=== PATIENT | female | born 1990 | race Two or more races ===

== ENCOUNTER 2022-11-05 12:30 | Observation (INO) | payer MEDICAID | END 2022-11-05 17:38 | disposition home or self-care (01) | LOC: UNDOADMOB 12:30 → LDRP 12:30 | PROVIDERS: ADMIT Obstetrics & Gynecology; ATTEND Obstetrics & Gynecology | DX: O26.893 Other specified pregnancy related conditions, third trimester (principal); R10.30 Lower abdominal pain, unspecified; Z3A.28 28 weeks gestation of pregnancy; Z98.891 History of uterine scar from previous surgery | CPT/HCPCS: 59025; 76805; 76817; 81002; 94760; G0378 ==

== ENCOUNTER 2022-12-08 11:25 | Observation (INO) | payer MEDICAID ==
[~2022-12-08] VITALS: Ht 165.1 cm; Wt 90.7 kg
[2022-12-08 12:22] LABS: Basophils # (auto) 0 10 ^3/uL (0-0.2); Basophils % (auto) 0.2 % (0.0-2.0); Eosinophils # (auto) 0.1 10 ^3/uL (0-0.8); Eosinophils % (auto) 1.3 % (0.0-7.0); Hematocrit 35.1 % (36.0-46.0); Hemoglobin 11.7 g/dL (12.2-16.2); Lymphocytes # (auto) 2.2 10 ^3/uL (0.4-5.4); Lymphocytes % (auto) 23.8 % (10.0-50.0); Mean Corpuscular Hemoglobin 28.8 pg (28.0-32.0); Mean Corpuscular Hgb Conc. 33.3 g/dL (32.0-36.0); Mean Corpuscular Volume 86.4 fL (80.0-100.0); Monocytes # (auto) 0.5 10 ^3/uL (0-1.3); Neutrophils # (auto) 6.2 10 ^3/uL (1.6-8.6); Neutrophils % (auto) 68.7 % (37.0-80.0); Nucleated Red Blood Cells % 0.1 %; Red Blood Cells 4.07 10^6/uL (4.0-5.20); Red Cell Distribution Width 14.6 % (11.8-14.3); White Blood Cell 9.1 10^3/uL (4.4-10.8)
[2022-12-08 12:27] LABS: Urine Bacteria NONE SEEN /hpf (None Seen); Urine Blood Negative /uL (Negative); Urine Clarity HAZY (Clear); Urine Color Colorless (Yellow); Urine Protein, UAD TRACE (Negative); Urine Specific Gravity 1.011 (1.001-1.035); Urine Urobilinogen Normal (Negative); Urine WBC 5 /hpf (0 - 5)
[2022-12-08 12:32] LABS: Protein, Urine 15.2 mg/dL (0.0-11.9)
[2022-12-08 12:34] LABS: Albumin 3.8 g/dL (3.2-4.8); Alkaline Phosphatase 113 U/L (46-116); Anion Gap 8 (5-15); Aspartate Aminotransferase 14 U/L (13-40); Bilirubin, Total 0.4 mg/dL (0.2-1.0); Calcium 8.3 mg/dL (8.7-10.4); Carbon Dioxide 25 mmol/L (20-30); Chloride 105 mmol/L (98-107); Glucose 94 mg/dL (74-106); Potassium 3.3 mmol/L (3.5-5.1); Sodium 138 mmol/L (136-145); Total Protein 6.2 g/dL (5.7-8.2); Uric Acid 3.4 mg/dL (3.1-7.8)
[2022-12-08 12:35] LABS: Creatinine, Urine 58.2 mg/dL (30.0-125.0); Urine Protein/Creatinine Ratio 0.26
[2022-12-08 12:38] LABS: Alanine Aminotransferase < 9 U/L (7-40); Blood Urea Nitrogen < 5 mg/dL (9-23)
[2022-12-08 12:44] LABS: INR 0.94 (0.9-1.15); Prothrombin Time 9.9 sec (9.3-11.8)
[2022-12-08] MEDS ORDERED: POTASSIUM CHL 20 Meq TABLET PO STA (13:06)
== END 2022-12-08 13:38 | disposition home or self-care (01) ==
LOC: LDRP 11:25 → UNDOADMOB 11:25 → LDRP 11:39 → UNDODISOB 13:38
PROVIDERS: ADMIT Obstetrics & Gynecology; ATTEND Obstetrics & Gynecology
DX: O13.3 Gestational [pregnancy-induced] hypertension without significant proteinuria, third trimester (principal); Z3A.32 32 weeks gestation of pregnancy
CPT/HCPCS: 36415; 59025; 76818; 80053; 81001; 81002; 82570; 84156; 84550; 85025; 85379; 85384; 85610; 85730; 94760; G0378

== ENCOUNTER 2022-12-16 10:20 | Observation (INO) | payer MEDICAID ==
[2022-12-16 10:56] LABS: Protein, Urine 10.7 mg/dL (0.0-11.9)
[2022-12-16 10:56] LABS: Protein, Urine 9.2 mg/dL (0.0-11.9)
[2022-12-16 10:59] LABS: Creatinine, Urine 44.34 mg/dL (30.0-125.0); Urine Protein/Creatinine Ratio 0.24
[2022-12-16] MEDS ORDERED: PREN-96 PO (12:14)
== END 2022-12-16 12:23 | disposition home or self-care (01) ==
LOC: LDRP 10:20 → UNDOADMOB 10:20 → LDRP 10:23
PROVIDERS: ADMIT Obstetrics & Gynecology; ATTEND Obstetrics & Gynecology
DX: O13.3 Gestational [pregnancy-induced] hypertension without significant proteinuria, third trimester (principal); Z3A.34 34 weeks gestation of pregnancy
CPT/HCPCS: 59025; 76818; 81002; 82570; 84156; 94760; G0378

== ENCOUNTER 2023-01-09 10:56 | Observation (INO) | payer MEDICAID ==
[~2023-01-09 10:56] MED LIST: PREN-96 PO
== END 2023-01-09 12:19 | disposition home or self-care (01) ==
LOC: LDRP 10:56
PROVIDERS: ADMIT Obstetrics & Gynecology; ATTEND Obstetrics & Gynecology
DX: O41.03X0 Oligohydramnios, third trimester, not applicable or unspecified (principal); O24.419 Gestational diabetes mellitus in pregnancy, unspecified control; O26.893 Other specified pregnancy related conditions, third trimester; R51.9 Headache, unspecified; Z3A.37 37 weeks gestation of pregnancy
CPT/HCPCS: 59025; 76818; 81002; G0378

== ENCOUNTER 2023-01-11 09:06 | Inpatient (IN) | payer MEDICAID ==
[~2023-01-11] VITALS: Ht 170.2 cm; Wt 104.3 kg
[2023-01-11 11:32] LABS: Basophils # (auto) 0 10 ^3/uL (0-0.2); Basophils % (auto) 0.2 % (0.0-2.0); Eosinophils # (auto) 0 10 ^3/uL (0-0.8); Eosinophils % (auto) 0.6 % (0.0-7.0); Hematocrit 36.2 % (36.0-46.0); Hemoglobin 12.3 g/dL (12.2-16.2); Lymphocytes # (auto) 2.2 10 ^3/uL (0.4-5.4); Lymphocytes % (auto) 24.8 % (10.0-50.0); Mean Corpuscular Hemoglobin 28.7 pg (28.0-32.0); Mean Corpuscular Hgb Conc. 34.1 g/dL (32.0-36.0); Monocytes # (auto) 0.7 10 ^3/uL (0-1.3); Monocytes % (auto) 7.5 % (0.0-12.0); Neutrophils # (auto) 5.9 10 ^3/uL (1.6-8.6); Neutrophils % (auto) 66.9 % (37.0-80.0); Nucleated Red Blood Cells % 0.1 %; Red Cell Distribution Width 15.2 % (11.8-14.3); White Blood Cell 8.8 10^3/uL (4.4-10.8)
[2023-01-11 11:53] LABS: Amphetamine Screen, Urine Neg (NEGATIVE); Urine Bacteria NONE SEEN /hpf (None Seen); Urine Blood Negative /uL (Negative); Urine Clarity Clear (Clear); Urine Color Colorless (Yellow); Urine Hyaline Cast FEW /lpf (0 - 2); Urine Protein, UAD Negative (Negative); Urine Specific Gravity 1.005 (1.001-1.035); Urine Urobilinogen Normal (Negative); Urine WBC 2 /hpf (0 - 5)
[2023-01-11 11:53] LABS: Albumin 3.8 g/dL (3.2-4.8); Alkaline Phosphatase 167 U/L (46-116); Anion Gap 7 (5-15); Aspartate Aminotransferase 13 U/L (13-40); Bilirubin, Total 0.4 mg/dL (0.2-1.0); Calcium 8.9 mg/dL (8.5-10.1); Carbon Dioxide 24 mmol/L (20-30); Chloride 107 mmol/L (98-107); Glucose 81 mg/dL (74-106); Potassium 3.4 mmol/L (3.5-5.1); Sodium 138 mmol/L (136-145); Total Protein 6.1 g/dL (5.7-8.2)
[2023-01-11 11:55] LABS: Barbiturate Scree,Urine Neg (NEGATIVE); Benzodiazephine Screen, Urine Neg (NEGATIVE); Cocaine Screen, Urine Neg (NEGATIVE); Opiate Scree,Urine Neg (NEGATIVE)
[2023-01-11 11:55] LABS: Alanine Aminotransferase < 9 U/L (7-40); BUN/Creatinine Ratio 11.1 (10.0-20.0); Blood Urea Nitrogen < 5 mg/dL (9-23)
[2023-01-11 11:56] LABS: Cannabinoid Screen, Urine Neg (NEGATIVE); Phencyclidine Screen, Urine Neg (NEGATIVE)
[2023-01-11 12:07] LABS: INR 0.94 (0.9-1.15); Partial Thromboplastin Time 27.6 SEC (24.5-34.5); Prothrombin Time 9.9 sec (9.3-11.8)
[2023-01-12] VITALS (18 sets, daily range): BP systolic 121–147; BP diastolic 67–92; PULSE 88–110; RESP 13–20; TEMP 98–99.8; O2SAT 93–98
[2023-01-12] MEDS ORDERED: LACTATED RINGER'S 1,000 ML IV ONE (04:15)
[2023-01-12] MEDS: LACTATED RINGER'S 1,000 ML IV SCH ×2 (05:51→14:15)
[2023-01-12 05:54] LABS: Basophils # (auto) 0 10 ^3/uL (0-0.2); Basophils % (auto) 0.3 % (0.0-2.0); Eosinophils # (auto) 0.1 10 ^3/uL (0-0.8); Eosinophils % (auto) 0.9 % (0.0-7.0); Hematocrit 34.7 % (36.0-46.0); Hemoglobin 11.5 g/dL (12.2-16.2); Lymphocytes # (auto) 2.4 10 ^3/uL (0.4-5.4); Lymphocytes % (auto) 27.4 % (10.0-50.0); Mean Corpuscular Hemoglobin 28.1 pg (28.0-32.0); Mean Corpuscular Hgb Conc. 33.2 g/dL (32.0-36.0); Mean Corpuscular Volume 84.7 fL (80.0-100.0); Monocytes # (auto) 0.6 10 ^3/uL (0-1.3); Monocytes % (auto) 7.4 % (0.0-12.0); Neutrophils # (auto) 5.6 10 ^3/uL (1.6-8.6); Nucleated Red Blood Cells % 0.1 %; Red Cell Distribution Width 15.1 % (11.8-14.3); White Blood Cell 8.7 10^3/uL (4.4-10.8)
[2023-01-12 05:57] LABS: Albumin 3.5 g/dL (3.2-4.8); Alkaline Phosphatase 166 U/L (46-116); Anion Gap 8 (5-15); Aspartate Aminotransferase 12 U/L (13-40); Bilirubin, Total 0.5 mg/dL (0.2-1.0); Calcium 7.9 mg/dL (8.7-10.4); Carbon Dioxide 22 mmol/L (20-30); Chloride 108 mmol/L (98-107); Glucose 95 mg/dL (74-106); Potassium 3.1 mmol/L (3.5-5.1); Sodium 138 mmol/L (136-145); Total Protein 5.6 g/dL (5.7-8.2); Uric Acid 3.8 mg/dL (3.1-7.8)
[2023-01-12 06:09] LABS: INR 0.97 (0.9-1.15); Partial Thromboplastin Time 28.2 SEC (24.5-34.5); Prothrombin Time 10.2 sec (9.3-11.8)
[2023-01-12 06:35] LABS: Alanine Aminotransferase < 9 U/L (7-40); BUN/Creatinine Ratio 11.6 (10.0-20.0); Blood Urea Nitrogen < 5 mg/dL (9-23)
[2023-01-12] MEDS ORDERED: TETRACAINE 1% INJ 2 ML VIAL IJ ONE (06:59)
[2023-01-12] MEDS ORDERED: fentaNYL CITRATE 100 MCG/2 ML VL ONE (07:12)
[2023-01-12] MEDS ORDERED: MORPHINE SULF PF 5 MG/10 ML VIAL ONE (07:12)
[2023-01-12] MEDS ORDERED: MIDAZOLAM HCL 2MG/2ML 2ml VIAL (1mg/ml) ONE (07:13)
[2023-01-12] MEDS ORDERED: LACT. RINGERS/OXYTOCIN 20UNITS 1,000 ML IV ONE (07:15)
[2023-01-12] MEDS ORDERED: ONDANSETRON HCL 4 MG/2 ML VIAL IV PRN ×3 (07:15→08:15)
[2023-01-12] MEDS ORDERED: ceFAZolin 2 GM/D5W100ml 100 ML IV ONE (07:15)
[2023-01-12] MEDS ORDERED: GUM (CHEWING) 1 GUM CHEW CHEW ONE (07:15)
[2023-01-12] MEDS ORDERED: ceFAZolin 1GM/50ML 50 ML IV SCH (07:15)
[2023-01-12 07:25] LABS: Urine Bacteria NONE SEEN /hpf (None Seen); Urine Blood Negative /uL (Negative); Urine Clarity Clear (Clear); Urine Color Straw (Yellow); Urine Protein, UAD Negative (Negative); Urine Specific Gravity 1.011 (1.001-1.035); Urine Urobilinogen Normal (Negative); Urine WBC 3 /hpf (0 - 5)
[2023-01-12 07:29] LABS: Amphetamine Screen, Urine Neg (NEGATIVE); Benzodiazephine Screen, Urine Neg (NEGATIVE)
[2023-01-12 07:30] LABS: Barbiturate Scree,Urine Neg (NEGATIVE); Cannabinoid Screen, Urine Neg (NEGATIVE); Cocaine Screen, Urine Neg (NEGATIVE); Creatinine, Urine 52.87 mg/dL (30.0-125.0); Opiate Scree,Urine Neg (NEGATIVE); Phencyclidine Screen, Urine Neg (NEGATIVE)
[2023-01-12] MEDS ORDERED: CARBOPROST TROMETHAMINE 250 MCG/1ML VIAL IM ONE (07:48)
[2023-01-12] MEDS ORDERED: ONDANSETRON HCL 4 MG/2 ML VIAL ONE (07:49)
[2023-01-12 08:06] LABS: RPR Non Reactive (Non Reactive)
[2023-01-12] MEDS ORDERED: DexAMETHasone SOD PHOS 10MG/1ML VIAL INJ IV PRN (08:15)
[2023-01-12] MEDS ORDERED: MIDAZOLAM HCL 2MG/2ML 2ml VIAL (1mg/ml) IV PRN (08:15)
[2023-01-12] MEDS ORDERED: HYDROmorphone HCL 2 MG/ML VL/or syr IV PRN (08:15)
[2023-01-12] MEDS ORDERED: MORPHINE SULFATE 4 MG/ML SYR/VIAL IV PRN (08:15)
[2023-01-12] MEDS ORDERED: ePHEDrine SULFATE 50 MG/ML AMP IV PRN (08:15)
[2023-01-12] MEDS ORDERED: NALOXONE HCL 0.4 MG/ML VIAL IV PRN (08:15)
[2023-01-12] MEDS ORDERED: LABETALOL HCL 5 MG/ML 4ML SYRINGE IV PRN (08:15)
[2023-01-12 08:26] LABS: Protein, Urine 15.2 mg/dL (0.0-11.9); Urine Protein/Creatinine Ratio 0.29
[2023-01-12] MEDS ORDERED: HYDROmorphone HCL 2 MG/ML VL/or syr ONE (08:27)
[2023-01-12] MEDS: HYDROmorphone HCL 2 MG/ML VL/or syr IV PRN ×3 (08:31→08:58)
[2023-01-12] MEDS ORDERED: CEPH500C PO (09:51)
[2023-01-12] MEDS ORDERED: HYDR-4902 PO (09:51)
[2023-01-12] MEDS ORDERED: DOCU-94 PO (09:51)
[2023-01-12] MEDS: ACETAMINOPHEN IV 1000 MG/100ML (10MG/ML) IV PRN (14:13)
[2023-01-12] MEDS: ceFAZolin 1GM/50ML 50 ML IV SCH ×2 (14:59→23:57)
[2023-01-12] MEDS: KETOROLAC TROMETH 30 MG/ML 1ML VIAL IV PRN (19:18)
[2023-01-12] MEDS ORDERED: IBUP-1456 PO (19:18)
[2023-01-12 22:23] LABS: Basophils # (auto) 0 10 ^3/uL (0-0.2); Basophils % (auto) 0.2 % (0.0-2.0); Eosinophils # (auto) 0 10 ^3/uL (0-0.8); Eosinophils % (auto) 0.1 % (0.0-7.0); Hematocrit 33.6 % (36.0-46.0); Lymphocytes % (auto) 8.9 % (10.0-50.0); Mean Corpuscular Hemoglobin 27.8 pg (28.0-32.0); Mean Corpuscular Hgb Conc. 32.7 g/dL (32.0-36.0); Monocytes # (auto) 0.4 10 ^3/uL (0-1.3); Monocytes % (auto) 3.1 % (0.0-12.0); Neutrophils # (auto) 10.2 10 ^3/uL (1.6-8.6); Neutrophils % (auto) 87.7 % (37.0-80.0); Red Blood Cells 3.95 10^6/uL (4.0-5.20); Red Cell Distribution Width 15.2 % (11.8-14.3); White Blood Cell 11.6 10^3/uL (4.4-10.8)
[2023-01-13] VITALS (12 sets, daily range): BP systolic 124–141; BP diastolic 58–89; PULSE 88–109; RESP 16–18; TEMP 97.7–98.8; O2SAT 93–99
[2023-01-13] MEDS: LACTATED RINGER'S 1,000 ML IV SCH (00:01)
[2023-01-13] MEDS: ACETAMINOPHEN IV 1000 MG/100ML (10MG/ML) IV PRN (00:37)
[2023-01-13] MEDS: KETOROLAC TROMETH 30 MG/ML 1ML VIAL IV PRN (01:33)
[2023-01-13] MEDS ORDERED: POTASSIUM CHL 20 Meq TABLET PO ONE (05:15)
[2023-01-13 06:56] LABS: Basophils # (auto) 0 10 ^3/uL (0-0.2); Basophils % (auto) 0.4 % (0.0-2.0); Eosinophils # (auto) 0 10 ^3/uL (0-0.8); Eosinophils % (auto) 0.1 % (0.0-7.0); Hematocrit 33.6 % (36.0-46.0); Hemoglobin 11.1 g/dL (12.2-16.2); Lymphocytes # (auto) 1.1 10 ^3/uL (0.4-5.4); Lymphocytes % (auto) 11.3 % (10.0-50.0); Mean Corpuscular Hemoglobin 28.2 pg (28.0-32.0); Mean Corpuscular Volume 85.5 fL (80.0-100.0); Monocytes # (auto) 0.5 10 ^3/uL (0-1.3); Monocytes % (auto) 4.6 % (0.0-12.0); Neutrophils # (auto) 8.5 10 ^3/uL (1.6-8.6); Neutrophils % (auto) 83.6 % (37.0-80.0); Red Blood Cells 3.94 10^6/uL (4.0-5.20); Red Cell Distribution Width 15.3 % (11.8-14.3); White Blood Cell 10.1 10^3/uL (4.4-10.8)
[2023-01-13] MEDS ORDERED: BISACODYL 10 MG RECT SUPP PR PRN (07:00)
[2023-01-13] MEDS: ceFAZolin 1GM/50ML 50 ML IV SCH ×3 (07:00→07:20)
[2023-01-13] MEDS ORDERED: HYDROcodone-ACET 5/325MG TAB PO PRN (07:00)
[2023-01-13] MEDS: HYDROcodone-ACET 5/325MG TAB PO PRN ×4 (07:08→21:53)
[2023-01-13] MEDS: IBUPROFEN 800 MG TAB PO PRN ×2 (10:10→19:31)
[2023-01-13] MEDS: DOCUSATE SOD 100 MG CAP PO SCH ×2 (10:10→21:53)
[2023-01-13] MEDS: DOCUSATE CALCIUM 240 MG CAP PO SCH (10:10)
[2023-01-13] MEDS: CEPHALEXIN 250 MG CAP PO SCH ×3 (11:39→23:44)
[2023-01-13] MEDS: SIMETHICONE 80 MG CHEWABLE TABLET PO SCH ×3 (11:39→21:53)
[2023-01-13 18:06] LABS: Treponema pallidum Ab (FTA-Ab) Non Reactive (Non Reactive)
[2023-01-13] MEDS ORDERED: TETANUS-DIPTH-ACEL PERTUSSIS 0.5ML SYR Tdap IM ONE (21:00)
[2023-01-14] MEDS: IBUPROFEN 800 MG TAB PO PRN (02:44)
[2023-01-14 02:45] VITALS: BP 132/76; PULSE 86; RESP 16; TEMP 98.4; O2SAT 97
[2023-01-14] MEDS: SIMETHICONE 80 MG CHEWABLE TABLET PO SCH ×3 (05:34→17:54)
[2023-01-14 07:00] VITALS: BP 142/86; PULSE 79; RESP 16; TEMP 98.5; O2SAT 97
[2023-01-14] MEDS: CEPHALEXIN 250 MG CAP PO SCH ×3 (08:20→17:54)
[2023-01-14 11:00] VITALS: BP 138/75; PULSE 82; RESP 16; TEMP 98.7; O2SAT 97
[2023-01-14] MEDS: DOCUSATE CALCIUM 240 MG CAP PO SCH (11:16)
[2023-01-14] MEDS: DOCUSATE SOD 100 MG CAP PO SCH (11:16)
[2023-01-14] MEDS: HYDROcodone-ACET 5/325MG TAB PO PRN ×2 (11:17→15:39)
[2023-01-14 14:54] VITALS: BP 149/83; PULSE 95; RESP 16; TEMP 99.7; O2SAT 97
[2023-01-14 18:50] VITALS: BP 140/96; PULSE 100; RESP 17; TEMP 99.4; O2SAT 96
[2023-01-15 06:06] LABS: Rubella Antibodies, IgG <0.90 index (Immune >0.99)
== END 2023-01-14 21:55 | disposition home or self-care (01) | DRG 540 ==
LOC: EDSTATUS 10:13 → LDRP 01-12 03:58
PROVIDERS: ADMIT Obstetrics & Gynecology; ATTEND Obstetrics & Gynecology
PROC: 10D00Z1 Extraction of Products of Conception, Low, Open Approach (ICD-10-PCS; principal; 2023-01-12 07:09)
DX: O34.211 Maternal care for low transverse scar from previous cesarean delivery (principal); E87.6 Hypokalemia; O99.284 Endocrine, nutritional and metabolic diseases complicating childbirth; Z37.0 Single live birth; Z3A.38 38 weeks gestation of pregnancy
CPT/HCPCS: 36415; 59025; 80053; 80307; 81001; 81002; 82570; 84156; 84550; 85025; 85610; 85730; 86592; 86762; 86850; 86900; 86901; 87340; 90715; 94760; 94762; 96360; 96361; 96366; 96372; 96375; G0378; J0131; J0690; J1885; J2250; J2405

== ENCOUNTER → 2024-01-30 | Outpatient (CLI) | payer MEDICAID ==
[~2024-01-30] MED LIST changes: +CEPH500C PO; +DOCU-94 PO; +HYDR-4902 PO; +IBUP-1456 PO
[2024-01-30 11:05] LABS: Basophils # (auto) 0 10 ^3/uL (0-0.2); Basophils % (auto) 0.4 % (0.0-2.0); Eosinophils # (auto) 0.1 10 ^3/uL (0-0.8); Hematocrit 43.1 % (36.0-46.0); Hemoglobin 14.9 g/dL (12.2-16.2); Lymphocytes # (auto) 3.3 10 ^3/uL (0.4-5.4); Lymphocytes % (auto) 34.3 % (10.0-50.0); Mean Corpuscular Hemoglobin 29.7 pg (28.0-32.0); Mean Corpuscular Hgb Conc. 34.5 g/dL (32.0-36.0); Mean Corpuscular Volume 86.2 fL (80.0-100.0); Monocytes # (auto) 0.6 10 ^3/uL (0-1.3); Monocytes % (auto) 6.2 % (0.0-12.0); Neutrophils # (auto) 5.6 10 ^3/uL (1.6-8.6); Neutrophils % (auto) 58.1 % (37.0-80.0); Nucleated Red Blood Cells % 0.1 %; Platelet Count (auto) 324 10^3/uL (140-450); Red Cell Distribution Width 14.5 % (11.8-14.3); White Blood Cell 9.6 10^3/uL (4.4-10.8)
[2024-01-30 11:38] LABS: Alanine Aminotransferase 10 U/L (7-40); Albumin 4.5 g/dL (3.2-4.8); Alkaline Phosphatase 67 U/L (46-116); Anion Gap 8 (5-15); Aspartate Aminotransferase < 8 U/L (13-40); BUN/Creatinine Ratio 8.1 (10.0-20.0); Blood Urea Nitrogen 5 mg/dL (9-23); Calcium 9.6 mg/dL (8.7-10.4); Carbon Dioxide 25 mmol/L (20-31); Chloride 104 mmol/L (98-107); Glucose 93 mg/dL (74-106); Potassium 3.6 mmol/L (3.5-5.1); Sodium 137 mmol/L (136-145)
[2024-01-30 11:40] LABS: Bilirubin, Total 0.4 mg/dL (0.2-1.0); Thyroid Stimulating Hormone 1.79 uIU/mL (0.55-4.78); Total Protein 7.1 g/dL (5.7-8.2)
[2024-01-30 11:41] LABS: Amphetamine Screen, Urine Neg (NEGATIVE)
[2024-01-30 11:44] LABS: Barbiturate Scree,Urine Neg (NEGATIVE); Benzodiazephine Screen, Urine Neg (NEGATIVE); Cannabinoid Screen, Urine Pos (NEGATIVE); Cocaine Screen, Urine Neg (NEGATIVE); Opiate Scree,Urine Neg (NEGATIVE); Phencyclidine Screen, Urine Neg (NEGATIVE)
[2024-01-31 06:06] LABS: Varicella Zoster IgG Antibody Reactive (Non Reactive)
[2024-01-31 07:06] LABS: RPR Non Reactive (Non Reactive)
[2024-01-31 13:06] LABS: Chlamydia Trachomatis, NAA Negative (Negative); Neisseria gonorrhoeae, NAA Negative (Negative)
== END | disposition home or self-care (01) ==
LOC: LAB 10:33
DX: Z34.00 Encounter for supervision of normal first pregnancy, unspecified trimester (principal); Z31.430 Encounter of female for testing for genetic disease carrier status for procreative management; Z36.0 Encounter for antenatal screening for chromosomal anomalies; N39.0 Urinary tract infection, site not specified
CPT/HCPCS: 36415; 80053; 80307; 83036; 84439; 84443; 84702; 85025; 86592; 86703; 86762; 86787; 86850; 86900; 86901; 87086; 87340; 87902

== ENCOUNTER 2024-02-13 13:42 | Emergency (ER) | payer MEDICAID ==
[~2024-02-13] VITALS: Ht 170.2 cm; Wt 102.7 kg
--- NOTE | 2024-02-13 14:54 | ED.PDOC ---
SENIOR PRODUCTION PLANNER HPI Comments 33 y.o female presents to the ED for a chief complaint of intermittent vaginal bleeding that started 2 weeks ago associated with suprapubic sharp pain. Patient is currently 11 weeks gestation with gynecological history of , 1 miscarriage. Patient reports she called her OB who referred her to the ED to get an ultrasound done. Patient now complains of worsening abdominal cramping, rating a 8/10 on the pain scale which worsens on exertion. Last ultrasound was done 3 weeks ago, per patient states everything was normal. No nausea, vomiting, diarrhea, back pain, recent trauma, fever, or chills reported. She denies medical, surgical history or allergies. Chief Complaint: Vaginal Bleed Time Seen by MD: 14:44 Reviewed Notes: Nurses Notes, Medications, Allergies Allergies: Coded Allergies: Milk-related Compounds (Verified Allergy, Unknown, 01/12/23) Shellfish Allergy (Verified Allergy, Unknown, 01/12/23) Home Meds Active Scripts Ibuprofen (Ibuprofen) 800 Mg Tab, 1 TAB PO TID, #90 TAB 0 Refills Prov:JACOBO PETERS CNM 01/12/23 Hydrocodone-Acetaminophen (Hydrocodone Bitartrate/AC 5-325 mg) 1 Tab Tab, 1 TAB PO Q6HPRN PRN for 6 Days, #24 TAB Prov:ERNIE ACOSTA 01/12/23 Docusate Sodium (Colace) 100 Mg Cap, 1 CAP PO BID, #60 CAP 2 Refills Prov:ERNIE ACOSTA 01/12/23 Cephalexin Monohydrate (Cephalexin) 500 Mg Cap, 500 MG PO QID for 7 Days, CAP Prov:ERNIE ACOSTA 01/12/23 Reported Medications Vit W/ Ferrous Fumara ( One Daily) Daily Tab, 1 TAB PO DAILY, #90 TAB 3 Refills 12/16/22 Information Source: Patient Mode of Arrival: Ambulatory Timing: Weeks (2) Severity: Moderate Vaginal Discharge: None Bleeding Quality: Bright Red Vaginal Mass: None Onset Of Mass/Bleeding: Spontaneous Sexual Activity: Last Consensual [employer]: Unknown Control: None History of: Current Associated Signs and Symptoms: Vaginal Bleeding, Abdominal Pain, Cramping, Sharp Past Medical History PAST MEDICAL HISTORY: Denies Surgical History: Denies all surgeries FACILITATOR History: No Pertinent FACILITATOR History 4 Para 2 AB 1 Family History Family History: Reviewed,noncontributory to illness, No family hx of Cancer, No family hx of DM, No family hx of Heart silver, No family hx of HTN, No family hx ofKidney silver, No family hx of Liver silver, No family hx of Lung silver, No family hx of Stroke Social History Smoker: Non-Smoker Alcohol: Denies ETOH Use Drugs: Denies Drug Use Lives In: Home Constitutional: denies: chills, diaphoresis, fatigue, fever, malaise, sweats, weakness, others EENTM: denies: blurred vision, double vision, ear bleeding, ear discharge, ear drainage, ear pain, ear ringing, eye pain, eye redness, hearing loss, mouth pain, mouth swelling, nasal discharge, nose bleeding, nose congestion, nose pain, photophobia, tearing, throat pain, throat swelling, voice changes, others Respiratory: denies: cough, hemoptysis, orthopnea, SOB at rest, shortness of breath, SOB with excertion, stridor, wheezing, others Cardiovascular: denies: chest pain, dizzy spells, diaphoresis, Dyspnea on exertion, edema, irregular heart beat, left arm pain, lightheadedness, palpitations, PND, syncope, others Gastrointestinal: reports: abdominal pain; denies: abdomen distended, blood streaked bowels, constipated, diarrhea, dysphagia, difficulty swallowing, hematemesis, melena, nausea, poor appetite, poor fluid intake, rectal bleeding, rectal pain, vomiting, others Genitourinary: reports: abnormal vagina bleeding, pain, ; denies: burning, dyspareunia, dysuria, flank pain, frequency, hematuria, incontinence, vagina discharge, urgency, others Neurological: denies: dizziness, fainting, headache, left sided numbness, left sided weakness, numbness, paresthesia, pre-existing deficit, right sided numbness, right sided weakness, seizure, speech problems, tingling, tremors, weakness, others Musculoskeletal: denies: back pain, gout, joint pain, joint swelling, muscle pain, muscle stiffness, neck pain, others Integumetry: denies: bruises, change in color, change in hair/nails, dryness, laceration, lesions, lumps, rash, wounds, others Allergic/Immunocompromised: denies: Difficulty Healing, Frequent Infections, Hives, Itching, others Hematologic/Lymphatic: denies: anemia, blood clots, easy bleeding, easy bruising, swollen glands, others Endocrine: denies: excessive hunger, excessive sweating, excessive thirst, excessive urination, flushing, intolerance to cold, intolerance to heat, unexplained weight gain, unexplained weight loss, others Psychiatric: denies: anxiety, bipolar disorder, depression, hopeless, panic disorder, schizophrenia, sleepless, suicidal, others All Other Systems: Reviewed and Negative Physical Exam General Appearance: No Apparent Distress HEENT: Normal ENT Inspection, Pharynx Normal, TMs Normal Neck: Full Range of Motion, Non-Tender, Normal, Normal Inspection Respiratory: Chest Non-Tender, Lungs Clear, No Accessory Muscle Use, No Respiratory Distress, Normal Breath Sounds Cardiovascular: No Edema, No JVD, No Murmur, No Gallop, Normal Peripheral Pulses, Regular Rate/Rhythm Breast Exam: Deferred Gastrointestinal: No Organomegaly, Non Tender, No Pulsatile Mass, Normal Bowel Sounds, Soft Genitalia: Deferred Pelvic: Deferred Rectal: Deferred Extremities: No calf tenderness, Normal capillary refill, Normal inspection, Normal range of motion, Non-tender, No pedal edema Musculoskeletal : Apperance: Normal Neurologic: Alert, thermal intelligence analyst II-XII nml as Tested, No Motor Deficits, Normal Affect, No Sensory Deficits Cerebellar Function: Normal Reflexes: Normal Skin: Dry, Normal Color, Warm Lymphatic: No Adenopathy Was a procedure done? Was a procedure done?: No Differential Diagnosis (FACILITATOR) Vaginal Bleeding: - Incomplete, - Inevitable, - Mis sed, - Threatened, Blood Loss Anemia, Dysmenorrhea, Ectopic X-Ray, Labs, Meds, VS Vital Signs Date Time Temp Pulse Resp B/P (MAP) Pulse Ox O2 Delivery O2 Flow Rate FiO2 02/13/24 14:13 99.1 92 16 146/81 (102) 97 Lab Test 02/13/24 18:21 Range/Units White Blood Count 10.7 4.4-10.8 10^3/uL Red Blood Count 5.01 4.0-5.20 10^6/uL Hemoglobin 14.5 12.2-16.2 g/dL Hematocrit 43.3 36.0-46.0 % Mean Corpuscular Volume 86.4 80.0-100.0 fL Mean Corpuscular Hemoglobin 28.9 28.0-32.0 pg Mean Corpuscular Hemoglobin Concent 33.4 32.0-36.0 g/dL Red Cell Distribution Width 14.5 H 11.8-14.3 % Platelet Count 325 140-450 10^3/uL Mean Platelet Volume 7.4 6.9-10.8 fL Neutrophils (%) (Auto) 56.9 37.0-80.0 % Lymphocytes (%) (Auto) 34.2 10.0-50.0 % Monocytes (%) (Auto) 6.5 0.0-12.0 % Eosinophils (%) (Auto) 1.4 0.0-7.0 % Basophils (%) (Auto) 1.0 0.0-2.0 % Neutrophils # (Auto) 6.1 1.6-8.6 10 ^3/uL Lymphocytes # (Auto) 3.7 0.4-5.4 10 ^3/uL Monocytes # (Auto) 0.7 0-1.3 10 ^3/uL Eosinophils # (Auto) 0.2 0-0.8 10 ^3/uL Basophils # (Auto) 0.1 0-0.2 10 ^3/uL Nucleated Red Blood Cells 0.2 % Beta HCG, Quantitative 66191.4 H 1.5-4.2 mIU/mL The CBC is within normal limits. The ultrasound of the pelvis shows a single viable intrauterine at 10 weeks and [place] [address] The patient was being discharged at this time The patient will follow up with the OBGYN The patient will return to the emergency department's the condition worsens. Images Reviewed?: Images reviewed and evaluated by me Time of 1ST Reevaluation: 14:54 Reevaluation 1ST: Unchanged Patient Education/Counseling: Diagnosis, Treatment, Prognosis, Need For Follow Up Family Education/Counseling: No Family Present Departure 1 Departure Time of Disposition: 21:19 Impression: Primary Impression: Threatened Disposition: 01 HOME / SELF CARE / HOMELESS Condition: Fair Discharged With: Self Critical Care Note Critical Care Time?: No Stability Stability form required: No I personally scribed for JORDAN BRAUN MD ([email or web address]) on 02/13/24 at 14:54. Electronically submitted by Cristela Ribeiro ([facility]). JORDAN BRAUN MD Feb 13, 2024 14:54
[2024-02-13 18:37] LABS: Basophils # (auto) 0.1 10 ^3/uL (0-0.2); Eosinophils # (auto) 0.2 10 ^3/uL (0-0.8); Eosinophils % (auto) 1.4 % (0.0-7.0); Hematocrit 43.3 % (36.0-46.0); Hemoglobin 14.5 g/dL (12.2-16.2); Lymphocytes # (auto) 3.7 10 ^3/uL (0.4-5.4); Lymphocytes % (auto) 34.2 % (10.0-50.0); Mean Corpuscular Hemoglobin 28.9 pg (28.0-32.0); Mean Corpuscular Hgb Conc. 33.4 g/dL (32.0-36.0); Mean Corpuscular Volume 86.4 fL (80.0-100.0); Monocytes # (auto) 0.7 10 ^3/uL (0-1.3); Monocytes % (auto) 6.5 % (0.0-12.0); Neutrophils # (auto) 6.1 10 ^3/uL (1.6-8.6); Neutrophils % (auto) 56.9 % (37.0-80.0); Nucleated Red Blood Cells % 0.2 %; Platelet Count (auto) 325 10^3/uL (140-450); Red Blood Cells 5.01 10^6/uL (4.0-5.20); Red Cell Distribution Width 14.5 % (11.8-14.3); White Blood Cell 10.7 10^3/uL (4.4-10.8)
--- NOTE | 2024-02-13 21:05 | DVH ---
OB ULTRASOUND CLINICAL HISTORY: pain and bleeding TECHNIQUE: Transvaginal OB ultrasound. Comparison: None FINDINGS: The uterus measures 12.4 x 9.0 x 8.1 cm. There is a gestational sac within the uterus with a mean sac diameter of 4.6 cm. There is appropriate surrounding decidua. Within the gestational sac a yolk sac and pole are identified. The crown-rump length measures 3.98 cm which corresponds to a gestatio nal age of 10 weeks 6 days. heart activity is demonstrated with heart tone of 175 BPM. The right ovary measures 3.8 x 2.6 x 2.3 cm. The left ovary measures 3.1 x 1.5 x 2.0 cm. Both ovaries appear within normal limits. There is no evidence of an adnexal mass. There is no free fluid within the cul-de-sac. IMPRESSION: 1. Single viable intrauterine with gestational age of 10 weeks 6 days based on crown-rump vanessa gth measurement. HS:Y
[2024-02-13 22:09] LABS: Urine Bacteria FEW /hpf (None Seen); Urine Blood 2+ /uL (Negative); Urine Clarity Clear (Clear); Urine Color Light-Yellow (Yellow); Urine Protein, UAD Negative (Negative); Urine Specific Gravity 1.016 (1.001-1.035); Urine Urobilinogen Normal (Negative); Urine WBC 2 /hpf (0 - 5); Urine pH 6.5 (5.0-9.0)
[2024-02-13 22:31] VITALS: BP 142/89; PULSE 96; RESP 16; TEMP 97.6; O2SAT 96
== END 2024-02-13 22:32 | disposition home or self-care (01) ==
LOC: ER 13:42
DX: O20.0 Threatened abortion (principal); Z3A.11 11 weeks gestation of pregnancy; Z91.011 Allergy to milk products; Z98.890 Other specified postprocedural states; Z88.8 Allergy status to other drugs, medicaments and biological substances
CPT/HCPCS: 36415; 76801; 76817; 81001; 84702; 85025

== ENCOUNTER → 2024-06-15 | Outpatient (CLI) | payer MEDICAID ==
[2024-06-15 10:44] LABS: Basophils # (auto) 0 10 ^3/uL (0-0.2); Basophils % (auto) 0.4 % (0.0-2.0); Eosinophils # (auto) 0.1 10 ^3/uL (0-0.8); Eosinophils % (auto) 0.7 % (0.0-7.0); Hematocrit 40.5 % (36.0-46.0); Hemoglobin 13.5 g/dL (12.2-16.2); Lymphocytes # (auto) 2.1 10 ^3/uL (0.4-5.4); Lymphocytes % (auto) 20.8 % (10.0-50.0); Mean Corpuscular Hemoglobin 28.7 pg (28.0-32.0); Mean Corpuscular Hgb Conc. 33.3 g/dL (32.0-36.0); Mean Corpuscular Volume 86.3 fL (80.0-100.0); Monocytes # (auto) 0.6 10 ^3/uL (0-1.3); Monocytes % (auto) 6.4 % (0.0-12.0); Neutrophils # (auto) 7.1 10 ^3/uL (1.6-8.6); Neutrophils % (auto) 71.7 % (37.0-80.0); Nucleated Red Blood Cells % 0.1 %; Platelet Count (auto) 276 10^3/uL (140-450); White Blood Cell 9.9 10^3/uL (4.4-10.8)
[2024-06-15 11:03] LABS: Alkaline Phosphatase 77 U/L (46-116); Anion Gap 7 (5-15); Calcium 8.7 mg/dL (8.7-10.4); Carbon Dioxide 25 mmol/L (20-31); Chloride 106 mmol/L (98-107); Glucose 105 mg/dL (74-106); Sodium 138 mmol/L (136-145); Total Protein 6.4 g/dL (5.7-8.2)
[2024-06-15 11:04] LABS: Bilirubin, Total 0.3 mg/dL (0.2-1.0)
[2024-06-15 11:07] LABS: Alanine Aminotransferase < 9 U/L (7-40); Aspartate Aminotransferase < 8 U/L (13-40); Blood Urea Nitrogen < 5 mg/dL (9-23)
== END | disposition home or self-care (01) ==
LOC: LAB 10:11
DX: Z34.80 Encounter for supervision of other normal pregnancy, unspecified trimester (principal); Z3A.00 Weeks of gestation of pregnancy not specified; Z79.899 Other long term (current) drug therapy
CPT/HCPCS: 36415; 80053; 82951; 83036; 85025

== ENCOUNTER 2024-07-13 11:15 | Observation (INO) | payer MEDICAID ==
[~2024-07-13] VITALS: Ht 170.2 cm; Wt 108.0 kg
--- NOTE | 2024-07-13 12:29 | DVH ---
Procedure: US OB ULTRASOUND COMP GTR 14 WKS 07/13/2024 11:30 AM HISTORY: vaginal bledding COMPARISON: US OB ULTRASOUND COMP GTR 14 WKS on DOS: 11/05/22 TECHNIQUE: Sonogram of the gravid uterus was performed. FINDINGS: Single living intrauterine gestation. Presentation: Cephalic Placenta: Anterior heart rate: 152 bpm MARK: 10.9 cm Maternal cervix: Closed, 4.3 cm in length in the transvaginal scan The following measurements were obtained: Biparietal diameter: 7.7 cm corresponding to 31 weeks and 0 day at 6.4th percentile Head Circumference: 29.2 cm corresponding to 32 weeks and 1 day , 9th percentile Abdominal Circumference: 29 cm corresponding to 32 weeks and 6 days , 61st percentile Femoral Length: 6.3 cm corresponding to 32 weeks and 3 days, 33rd percentile Average Ultrasound Age: 32 weeks and 1 day Estimated Date of Delivery by US: 09/06/2022 Estimated Weight: 1990 g corresponding to 37 th percentile based on LMP dating IMPRESSION: 1. Single currently living intrauterine gestation, as described above. No significant abnormalities a re apparent at this time.
[2024-07-13] MEDS: BETAMETHASONE ACET (30mg/5ml) 5ml Vial 6mg/ml IM ONE (13:05)
--- NOTE | 2024-07-13 15:18 | DVHDS2 ---
Physician Discharge Progress N Final Diagnosis: iup at 32 wks with vag bleeding ptl ,previous csx2 morbid obesity Operations or Procedures: Operations or Procedures nst reactive reviwed,sono Other Interventions Other Interventions celestone given Condition on Discharge: Higher Level of Care Disposition: Acute Care Facility Discharge Instructions: Diet: Regular Activity: Bed rest Follow Up/Referral: Transfer to Higher Level of care Medications: na Follow Up Care: Specialist: to [facility] Discharge Statement: "Patient was advised to return to the ER or call 911 if any headaches, dizziness, shortness of breath, chest pain, abdominal pain, bleeding, fevers, or worsening of medical condition. Patient was counseled about treatment plan, medications, possible side effects, patientverbalized understanding. All questions were answered to the best of my ability. This discharge took greater then 30 minutes in planning, reviewing documentation, counseling the patient, and discussing with other team members." Visit Coding OBGYN Date of Service: July 13, 2024 Billing Provider: ERNIE ACOSTA DO CHILDCARE CENTER DIRECTOR Common Visit Codes: [id number] OBS CARE (HIGH), 49498-XSH/OBS DISCH DAY >30MIN CHILDCARE CENTER DIRECTOR Procedure Codes: 37474-56- NON-STRESS TEST ERNIE ACOSTA DO July 13, 2024 15:18
--- NOTE | 2024-07-13 15:20 | DVHTS ---
Transfer Summary Transfer Summary Date of Admission July 13, 2024 at 11:15 Date of Transfer: July 13, 2024 Transfer Diagnosis iup at 32 wks ptl,previous csx2,morbid obesity Brief Hx & Hospital Course: pt presented with vag bleeding and ptl.cx is closed .pt was given celestone Transfer to: [facility] Discharge Instructions: via air Transfer Status stable Visit Coding OBGYN Date of Service: July 13, 2024 Billing Provider: ERNIE ACOSTA DO PROGRAM WRITER Common Visit Codes: 29869-[id number] CARE DISCHARGE PROGRAM WRITER Procedure Codes: 74943-88- NON-STRESS TEST ERNIE ACOSTA DO July 13, 2024 15:20
--- NOTE | 2024-07-13 15:24 | DVHHP2 ---
OB CC & HPI Date Date of Admission: July 13, 2024 Patient Identification: : 3 Para: 2 EDC: Sep 03, 2024 EGA: 32wks Chief Complaints: Reason for admission: labor, vaginal bleeding Admission Nurse Assessment Rev: No History of Present Complaints pt is admitted for vag bleeding ,ptl and was given celestone Past Medical History Cardiac: No pertinent Hx Pulmonary: No pertinent Hx Central Nervous System: No pertinent Hx GI: No pertinent Hx Hemotology/Oncology: No pertinent Hx Hepatobiliary: No pertinent Hx Psychiatric: No pertinent Hx Musculoskeletal: No pertinent Hx Rheumotologic: No pertinent Hx Infectious Disease: No peritnent Hx ENT: No pertinent Hx Renal/: No pertinent Hx Endocrine: No pertinent Hx Dermatology: No pertinent Hx Past Surgical History: OB History OB History Care: [facility] Ultrasounds: Normal mid trimester US Obstetrical Complications: None Medical Complications: None Allergies: Coded Allergies: Milk-related Compounds (Verified Allergy, Unknown, 01/12/23) Shellfish Allergy (Verified Allergy, Unknown, 01/12/23) Home Meds Active Scripts Ibuprofen (Ibuprofen) 800 Mg Tab, 1 TAB PO TID, #90 TAB 0 Refills Prov:DAVISBRIELLECAMRONCESARIO CNM 01/12/23 Hydrocodone-Acetaminophen (Hydrocodone Bitartrate/AC 5-325 mg) 1 Tab Tab, 1 TAB PO Q6HPRN PRN for 6 Days, #24 TAB Prov:ERNIE ACOSTA 01/12/23 Docusate Sodium (Colace) 100 Mg Cap, 1 CAP PO BID, #60 CAP 2 Refills Prov:ERNIE ACOSTA DO 01/12/23 Cephalexin Monohydrate (Cephalexin) 500 Mg Cap, 500 MG PO QID for 7 Days, CAP Prov:ERNIE ACOSTA DO 01/12/23 Reported Medications Vit W/ Ferrous Fumara ( One Daily) Daily Tab, 1 TAB PO DAILY, #90 TAB 3 Refills 12/16/22 Family & Social History Family/Social History Blood Type: Unknown Rubella: unknown RPR/VDRL: Negative GBS Status: Unknown HBsAG: Negative Review of Systems Constitutional: No symptom reported Ears, Nose, & Throat: No symptom reported Eyes: No symptom reported Pulmonary/Respiratory: No symptom reported Cardiovascular: No symptom reported Gastrointestinal: No symptom reported Genitourinary: No symptom reported Musculoskeletal: No symptom reported Skin: No symptom reported Psychiatric: No symptom reported Endocrine: No symptom reported Hemotologic/Lymphatic: No symptom reported OB Admission Exam Physical Exam HEENT: TMs Normal, Fontanelles Normal, Nasal Mucosa Normal, Eyes non-injected, Oropharynx Normal, PERRLA, Moist Membranes, EOMI Heart: Rhythm Normal Lungs: Clear Abdomen: Non tender Extremities: Normal Reflexes: Normal Cervical Dilatation: Fingertip Effacement: 25% Station: -3 Membranes: Intact Heart Rate: 120's Accelerations: Accelerations Present Decelerations: No Decelerations Short Term Variability: Present Fci Variability: Average (6-25) Contractions on Admission: >10 Minutes Apart OB Plan Plan Admitting Diagnosis: iup at 32 wks with previous csx2 vag bleeding -ptl morbid obesity Other Plan: transfer to [facility] ,dr stoner will manage . Visit Coding OBGYN Date of Service: July 13, 2024 Billing Provider: ERNIE ACOSTA DO GARDENING INSTRUCTOR Common Visit Codes: [id number] OBS CARE (HIGH) GARDENING INSTRUCTOR Procedure Codes: 91622-13- NON-STRESS TEST ERNIE ACOSTA DO July 13, 2024 15:24
== END 2024-07-13 14:30 | disposition home or self-care (01) ==
LOC: LDRP 11:15
PROVIDERS: ADMIT Obstetrics & Gynecology; ATTEND Obstetrics & Gynecology
DX: O60.03 Preterm labor without delivery, third trimester (principal); O99.213 Obesity complicating pregnancy, third trimester; E66.01 Morbid (severe) obesity due to excess calories; Z3A.32 32 weeks gestation of pregnancy; Z91.013 Allergy to seafood; Z79.899 Other long term (current) drug therapy; Z98.890 Other specified postprocedural states
CPT/HCPCS: 59025; 76805; 76817; 81002; 94760; 96360; 96361; G0378; J0702; 96372

== ENCOUNTER → 2024-12-20 | Outpatient (CLI) | payer MEDICAID ==
[2024-12-20 12:00] LABS: Hematocrit 43.4 % (36.0-46.0); Hemoglobin 14.6 g/dL (12.2-16.2); Mean Corpuscular Hemoglobin 28.5 pg (28.0-32.0); Mean Corpuscular Volume 84.6 fL (80.0-100.0); Nucleated Red Blood Cells % 0.1 %
[2024-12-20 12:04] LABS: Alanine Aminotransferase 14 U/L (7-40); Albumin 4.5 g/dL (3.2-4.8); Alkaline Phosphatase 55 U/L (46-116); Anion Gap 8 (5-15); Bilirubin, Total 0.5 mg/dL (0.2-1.0); Calcium 8.9 mg/dL (8.7-10.4); Carbon Dioxide 25 mmol/L (20-31); Chloride 104 mmol/L (98-107); Glucose 94 mg/dL (74-106); Sodium 137 mmol/L (136-145); Total Protein 7.3 g/dL (5.7-8.2)
[2024-12-20 12:05] LABS: Thyroid Stimulating Hormone 1.49 uIU/mL (0.55-4.78)
[2024-12-20 12:12] LABS: BUN/Creatinine Ratio 9.1 (10.0-20.0); Blood Urea Nitrogen < 5 mg/dL (9-23); Potassium 3.2 mmol/L (3.5-5.1)
[2024-12-20 12:17] LABS: Beta HCG, Quantitative 57485.4 mIU/mL (1.5-4.2)
[2024-12-20 13:32] LABS: Cannabinoid Screen, Urine Pos (NEGATIVE)
[2024-12-20 13:48] LABS: Barbiturate Scree,Urine Neg (NEGATIVE); Benzodiazephine Screen, Urine Neg (NEGATIVE); Cocaine Screen, Urine Neg (NEGATIVE); Opiate Scree,Urine Neg (NEGATIVE); Phencyclidine Screen, Urine Neg (NEGATIVE)
[2024-12-20 14:05] LABS: Amphetamine Screen, Urine Neg (NEGATIVE)
[2024-12-22 01:06] LABS: Chlamydia Trachomatis, NAA Negative (Negative); Neisseria gonorrhoeae, NAA Negative (Negative)
== END | disposition home or self-care (01) ==
LOC: LAB 10:48
PROVIDERS: ATTEND Obstetrics & Gynecology
DX: O23.40 Unspecified infection of urinary tract in pregnancy, unspecified trimester (principal); O99.280 Endocrine, nutritional and metabolic diseases complicating pregnancy, unspecified trimester; N39.0 Urinary tract infection, site not specified; E28.2 Polycystic ovarian syndrome; Z11.2 Encounter for screening for other bacterial diseases; Z11.3 Encounter for screening for infections with a predominantly sexual mode of transmission; Z31.430 Encounter of female for testing for genetic disease carrier status for procreative management; Z3A.00 Weeks of gestation of pregnancy not specified
CPT/HCPCS: 36415; 80053; 80307; 83036; 84439; 84443; 84702; 85025; 86703; 86762; 86780; 86787; 86850; 86900; 86901; 87086; 87340